=== PATIENT | male | born 1955 | race Caucasian/White ===

== ENCOUNTER → 2017-12-05 11:02 | Outpatient (CLI) | payer OTHER, SELFPAY ==
--- NOTE | 2017-12-05 11:09 | XR_ITS ---
XR knee RT 4V HISTORY: ITS.REASON: right knee pain ORDERING PHYSICIAN: Marquez Vital MD PATIENT AGE: 62 years COMPARISON: None FINDINGS: There are and mild osteoarthritic changes of the medial compartment and patellofemoral joint. An osteophyte projects along the medial aspect of the patella on the sunrise view and less so laterally. There may be a small suprapatellar effusion. No fracture or dislocation. No lytic or blastic change. IMPRESSION: Mild osteoarthritis of the medial compartment and patellofemoral joint with knee joint effusion
== END ==
PROVIDERS: PCP Family Medicine; Visit Provider Orthopaedic Surgery
DX: M25.561 Pain in right knee (principal)
CPT/HCPCS: 73564

== ENCOUNTER → 2021-01-12 13:44 | Outpatient (CLI) | payer OTHER, MEDICARE, SELFPAY ==
--- NOTE | 2021-01-12 13:51 | XR_ITS ---
PROCEDURE: XR KNEE RT 4V CLINICAL INDICATION: right knee pain COMPARISON: CR [id number] XR knee RT 4V from 12/05/2017 FINDINGS: No fracture or dislocation. No lytic or blastic change. There is normal mineralization. There are tricompartmental osteoarthritic changes which are mild in nature. Osteophytes are present at the intercondylar region and proximal tibial area at the tibial spine as well as the posterior patella. There is a small suprapatellar effusion. Other findings:None. IMPRESSION: Mild to moderate osteoarthritic changes with small knee joint effusion overall not significantly changed Dictated by: Camacho Marshall MD 01/12/2021 15:56 Camacho Marshall MD in [place] 01/12/2021 15:56
== END ==
PROVIDERS: PCP Family Medicine; Visit Provider Orthopaedic Surgery
DX: M25.561 Pain in right knee (principal)
CPT/HCPCS: 73564

== ENCOUNTER → 2021-05-11 14:11 | Outpatient (CLI) | payer OTHER, MEDICARE, SELFPAY ==
--- NOTE | 2021-05-11 14:18 | XR_ITS ---
PROCEDURE: XR HIP LT 2-3V W/PELVIS CLINICAL INDICATION: left hip pain COMPARISON: No exams were available for comparison FINDINGS: There has been prior surgery of the left acetabulum with a lateral bone plate and multiple cortical screws present. There are mild osteoarthritic changes of the left hip. Heterotopic ossification is noted along the lateral aspect of the femoral head and neck. Small metallic density overlies the medial thigh on the left. No acute fracture or dislocation. IMPRESSION: Postsurgical changes of the left acetabulum with osteoarthritis and heterotopic ossification Dictated by: Camacho Marshall MD 05/11/2021 15:30 Camacho Marshall MD in [place] 05/11/2021 15:30
--- NOTE | 2021-05-11 14:18 | XR_ITS ---
PROCEDURE: XR KNEE LT 4V CLINICAL INDICATION: left knee pain; weightbearing COMPARISON: CR [id number] XR knee RT 4V from 12/05/2017 CR XR KNEE RT 4V from 01/12/2021 FINDINGS: No fracture or dislocation. No lytic or blastic change. There is normal mineralization. Mild osteoarthritic changes involve all 3 compartments with slight decrease in the joint space and minimal osteophyte formation. This is greater along the medial compartment. There is an intramedullary [place] in the proximal tibia. Other findings:None. IMPRESSION: Mild tricompartmental osteoarthritic changes Dictated by: Camacho Marshall MD 05/11/2021 15:31 Camacho Marshall MD in [place] 05/11/2021 15:31
== END ==
PROVIDERS: PCP Family Medicine; Visit Provider Orthopaedic Surgery
DX: M25.562 Pain in left knee (principal); M25.552 Pain in left hip
CPT/HCPCS: 73502; 73564

== ENCOUNTER 2025-03-06 06:57 | Day surgery (SDC) | payer MEDICARE, SELFPAY ==
--- NOTE | 2025-03-04 13:41 | EXP.HP ---
History of Present Illness *Admission Date: 03/06/25 *History of present illness: Mr. Peng is a 70-year-old gentleman who is here for screening/surveillance colonoscopy. The patient's last colonoscopy was in 2009 and he does have a family history of colon cancer. The patient's brother had colon cancer at the age of 52. The examination is deemed medically necessary for screening/surveillance colonoscopy. The patient has been seen, interviewed and examined prior to the procedure by both myself and the anesthesia provider. [facility] Disclaimer: The information contained in this section may have been updated after the patient was seen, as this information can be updated by other users. Medical History Hip fracture, left Leg fracture, left Family History Mother Family history of myocardial infarction Father Liver cancer Brother Colon cancer Social History (Updated 03/06/25 @ 07:39 by Bhavna Cade RN) Smoking Status: Former smoker alcohol intake: current alcohol intake frequency: holidays/special occasions only substance use type: denies use current occupational status: employed Travel in the last 8 weeks?: Inside the [place] Have you lived/traveled outside US in past 30 days?: No Contact w/someone who lives/traveled outside US past 30 days?: No Exposure to someone with infectious disease in past 14 days?: No Do you have a fever (greater than 100.4 F or 38 C)?: No Have you tested positive for COVID-19?: No Exposed to someone with COVID-19 in past 14 days?: No Do you have a sore throat?: No Do you have a cough?: No Do you have any weakness?: No Are you experiencing any nausea/vomitting?: No Do you have any diarrhea?: No Are you experiencing any unusual bleeding?: No Do you have any muscle aches/pain?: No Do you have any abdominal pain?: No Are you experiencing loss of taste or smell?: No Other Medical History Have you received the Flu Vaccine for this season: Yes Have you received the Pneumonia Vaccine: Yes Review of Systems Review of Systems Review of systems (narrative): Negative *Cardiovascular Comments: Negative *Gastrointestinal Comments: Negative *Genitourinary Comments: Negative *Musculoskeletal Comments: Negative *Neurologic Comments: Negative Meds Home Medications and Allergies Home Medications ?Medication ?Instructions ?Recorded ?Confirmed ?Type celecoxib 200 mg capsule 200 mg PO DAILY #90 caps 12/17/21 03/17/22 Rx losartan 100 mg tablet 100 mg PO ONCE #90 tabs 12/17/21 03/17/22 Rx amlodipine 2.5 mg tablet 2.5 mg PO ONCE #90 tabs 01/20/23 Rx sodium,potassium,mag sulfates 17.5 See Rx Instructions PO .COMPLEX 02/20/25 Rx gram-3.13 gram-1.6 gram oral soln #354 mL (Suprep Bowel Prep Kit) New Prescriptions to Start Prescriptions: Allergies Allergy/AdvReac Type Severity Reaction Status Date / Time Penicillins Allergy Unknown Rash Verified 03/06/25 07:48 Exam *Routine HEENT Exam Head: Present normocephalic Eye: Present EOMI and PERRL ENT: Present mucous membranes moist *Routine Neck Exam Neck: Present supple *Routine Respiratory Exam Respiratory: Present CTA bilaterally *Routine Cardiovascular Exam Cardiovascular: Present RRR *Routine Abdominal Exam Abdominal: Present soft and normoactive bowel sounds; Absent tenderness *Routine Rectal Exam Rectal:: deferred *Routine Genitalia Exam Genitalia:: deferred *Routine Extremities Exam Extremities: Absent cyanosis, clubbing or edema *Routine Skin Exam Skin: Present warm; Absent rash *Routine Neurological Exam Neurological: Present alert and oriented X3 Assessment and Plan *Assessment and plan (1) Screening for colon cancer: Status: Acute Category: Medical Code(s): Z12.11 - Encounter for screening for malignant neoplasm of colon (2) Family history of colon cancer: Status: Acute Category: Medical Code(s): Z80.0 - Family history of malignant neoplasm of digestive organs Plan A/P: 1. Screening for colon cancer with family history of colon cancer is the preprocedural diagnosis. The patient will be anesthetized/sedated using MAC sedation. The patient has been seen and examined. Cardiac and lung assessment prior to the examination is stable. Proceed with planned screening colonoscopy.
--- NOTE | 2025-03-06 07:14 | HMH.PROCNOTE ---
[facility] Procedure Note Date: 03/06/25 Time: 08:27 Procedure Note:: Colonoscopy Procedure Report: Colonoscopy with cold snare polypectomy Endoscopist: Freddy Prajapati II, MD Referring physician: Devonte Polanco MD Date of Procedure: March 06, 2025 Equipment: Olympus [id number] adult colonoscope Sedation: MAC sedation Indication: Mr. Peng is a 70-year-old gentleman who is here for screening/surveillance colonoscopy. The patient's last colonoscopy was in 2009 and he does have a family history of colon cancer. The patient's brother had advanced colon cancer at the age of 52. He reports no abdominal pain, weight loss, change in his bowel habits or rectal bleeding. The examination is deemed medically necessary for screening/surveillance colonoscopy. Procedure: Prior to the procedure, a history and physical exam was performed, and patient's medications and allergies were reviewed. The risks, benefits and alternatives of the sedation and procedure were discussed with the patient. All questions were answered and informed consent was obtained. The patient was brought to the procedure room. Patient identification and proposed procedure were verified by the physician and the nurse. The patient was placed in a left lateral decubitus position and the scope was passed under direct vision. Throughout the procedure, the patient's blood pressure, pulse, and oxygen saturations were monitored continuously. The colonoscopy was accomplished without difficulty. The patient tolerated the procedure well. Findings: On digital rectal examination there was normal rectal tone. There were no external hemorrhoids. The prostate was 2+, moderately firm and with a lower midline nodule. The colonoscope was introduced through the anal canal to the rectum and advanced to the cecum. The ileocecal valve and appendiceal orifice were identified. The scope was advanced a short distance into the ileum which appeared grossly normal. The scope was then withdrawn into the colon. There was a single transverse polyp (5 mm) that was removed via cold snare polypectomy. The remaining cecum, ascending and transverse colon and mucosa were grossly normal. There were scattered diverticuli throughout the descending and sigmoid colon (LEFT colon). The rectum itself was normal. Upon retroflexion within the rectum there were grade 1-2 internal hemorrhoids. The preparation was excellent throughout with Ethan Preparation Score of 9. The cecal time was 12 minutes. Impression: 1. Diminutive transverse colon polyp (5 mm) 2. Left-sided diverticulosis 3. Grade 1-2 internal hemorrhoids 4. Lower midline prostate nodule Plan: I will follow-up the polyp histology and recommend repeat screening/surveillance colonoscopy again in 5 years (based on family history) and this will certainly be based upon his good health and desire to continue preventative surveillance. The patient did have firm prostate nodule in the lower midline. I will try to obtain most recent PSA from Dr. Polanco or repeat PSA today and make referral to urology.
[2025-03-06 07:33] VITALS: BP 185/94; PULSE 85; RESP 16; TEMP 36.4; O2SAT 94; BMI 31.9
[2025-03-06] MEDS: LACTATED RINGERS 1000ML 1,000 ML 50 ML IV (07:51)
--- NOTE | 2025-03-06 08:05 | P.PNANES_ITS ---
[facility] Disclaimer: The information contained in this section may have been updated after the patient was seen, as this information can be updated by other users. Medical History Hip fracture, left Leg fracture, left Family History Mother Family history of myocardial infarction Father Liver cancer Brother Colon cancer Social History (Updated 03/06/25 @ 07:39 by Bhavna Cade RN) Smoking Status: Former smoker alcohol intake: current alcohol intake frequency: holidays/special occasions only substance use type: denies use current occupational status: employed Travel in the last 8 weeks?: Inside the [place] Have you lived/traveled outside [place] in past 30 days?: No Contact w/someone who lives/traveled outside [place] past 30 days?: No Exposure to someone with infectious disease in past 14 days?: No Do you have a fever (greater than 100.4 F or 38 C)?: No Have you tested positive for COVID-19?: No Exposed to someone with COVID-19 in past 14 days?: No Do you have a sore throat?: No Do you have a cough?: No Do you have any weakness?: No Are you experiencing any nausea/vomitting?: No Do you have any diarrhea?: No Are you experiencing any unusual bleeding?: No Do you have any muscle aches/pain?: No Do you have any abdominal pain?: No Are you experiencing loss of taste or smell?: No [facility] Anesthesia Checklist Patient Identification Patient Identification: Verbal (Name & ) Structural Data Admitted From: Home Planned Operative Procedure/s: colonoscopy Consent for Planned Operative Procedure(s) Verified: Yes NPO Status Verified Time NPO: 00:00 Airway Assessment Mallampati Score:: Class II C-Spine Mobility Assessed: Yes TMJ Mobility Assessed: Yes Dentition: Dentures-good fit Neurological Assessment Level of Consciousness: Awake, Alert and Appropriate Anesthesia Plan Anesthesia Risk discussed: Yes Anesthesia Plan: Verified ASA Class: II Anesthesia Type: MAC
[2025-03-06 08:28] VITALS: BP 104/52; PULSE 74; RESP 18; TEMP 36.3; O2SAT 95
[2025-03-06 08:38] VITALS: BP 108/54; PULSE 71; RESP 18; O2SAT 95
[2025-03-06 08:48] VITALS: BP 110/59; PULSE 67; O2SAT 96
[2025-03-06 08:58] VITALS: BP 101/56; PULSE 76; O2SAT 97
== END 2025-03-06 08:58 | disposition home or self-care (01) ==
PROVIDERS: PCP Family Medicine; Visit Provider Internal Medicine Gastroenterology
PROC: 0DJD8ZZ Inspection of Lower Intestinal Tract, Via Natural or Artificial Opening Endoscopic (ICD-10-PCS; CPT 45378; principal; 2025-03-06 08:30)
DX: Z12.11 Encounter for screening for malignant neoplasm of colon (principal); D12.4 Benign neoplasm of descending colon; K57.30 Diverticulosis of large intestine without perforation or abscess without bleeding; K64.0 First degree hemorrhoids; K64.1 Second degree hemorrhoids; N40.2 Nodular prostate without lower urinary tract symptoms; Z80.0 Family history of malignant neoplasm of digestive organs; Z88.0 Allergy status to penicillin; Z87.891 Personal history of nicotine dependence
CPT/HCPCS: 45385; 36415; G0103; J2003; J2704; J7120